=== PATIENT | male | born 1995 ===

== ENCOUNTER 2023-11-16 14:10 | Emergency (ER) | payer SELFPAY ==
[~2023-11-16] VITALS: Ht 172.7 cm; Wt 75.0 kg
[2023-11-16 14:17] VITALS: BP 124/86; PULSE 88; RESP 16; TEMP 98.4; O2SAT 98
[2023-11-16 14:45] LABS: *AMPHETAMINES SCREEN URINE NEGATIVE (NEGATIVE); *BARBITURATES SCREEN URINE NEGATIVE (NEGATIVE); *BENZODIAZEPINES SCREEN URINE NEGATIVE (NEGATIVE); *COCAINE SCREEN URINE NEGATIVE (NEGATIVE); CANNABINOID URINE SCREEN NEGATIVE (NEGATIVE); ECSTASY MDMA SCREEN URINE NEGATIVE (NEGATIVE); METHADONE URINE SCREEN Neg (NEGATIVE); OPIATES URINE SCREEN NEGATIVE (NEGATIVE); PHENCYCLIDINE URINE SCREEN NEGATIVE (NEGATIVE)
== END 2023-11-16 16:15 | disposition home or self-care (01) ==
LOC: ER 14:10
DX: F10.129 Alcohol abuse with intoxication, unspecified (principal); I10 Essential (primary) hypertension; Y90.9 Presence of alcohol in blood, level not specified
CPT/HCPCS: 80305; 99283